=== PATIENT | female | born 1995 | race African-American/Black ===

== ENCOUNTER 2019-06-04 08:44 | Emergency (ER) | payer SELFPAY ==
[~2019-06-04] VITALS: Ht 167.6 cm; Wt 84.0 kg
[2019-06-04 09:20] VITALS: BP 150/84
== END 2019-06-04 09:35 | disposition left against medical advice (07) ==
LOC: ER 08:44
DX: R35.0 Frequency of micturition (principal); Z53.21 Procedure and treatment not carried out due to patient leaving prior to being seen by health care provider
CPT/HCPCS: 81025